=== PATIENT | female | born 1950 | race Caucasian/White ===

== ENCOUNTER 2020-11-03 09:34 | Day surgery (SDC) | payer MEDICARE ==
[2020-11-03] MEDS ORDERED: LACTATED RINGERS 1,000 ML IV ONE ×2 (10:19→13:19)
[2020-11-03] MEDS ORDERED: fentaNYL 250 MCG/5 ML VIAL ONE (12:41)
[2020-11-03] MEDS ORDERED: MIDAZOLAM 2 MG/2 ML VIAL ONE (12:41)
[2020-11-03 13:52] VITALS: BP 125/68
== END 2020-11-03 09:35 | disposition home or self-care (01) ==
LOC: SDS 09:34
PROVIDERS: ATTEND Surgery
DX: Z12.11 Encounter for screening for malignant neoplasm of colon (principal); K64.8 Other hemorrhoids; K64.4 Residual hemorrhoidal skin tags; K57.30 Diverticulosis of large intestine without perforation or abscess without bleeding
CPT/HCPCS: G0121; J3010; J7120

== ENCOUNTER 2022-09-28 08:29 | Outpatient (CLI) | payer MEDICARE ==
--- NOTE | 2022-09-28 10:20 | XRAY Report ---
PROCEDURE: Shoulder 3 View RT INDICATIONS: SHOULDER PX TECHNIQUE: 3 views of the shoulder were acquired. COMPARISON: None. FINDINGS: Bones: No fractures or dislocations. No suspicious bony lesions. Visualized ribs appear intact. Mi ld glenohumeral joint degenerative change. AC joint hypertrophy with mild downward component. Soft tissues: No suspicious soft tissue calcifications. IMPRESSION: Degenerative change. No evidence acute bony abnormality of the right shoulder. If clinical suspicion and/or symptoms persist, further assessment with repeat plain films or advanced imaging (e.g., CT, MRI, or bone scan) may be helpful for further assessment. Reviewed by: Anurag Harper MD on 09/28/2022 10:18 AM [facility] Approved by: Anurag Harper MD on 09/28/2022 10:18 AM [facility] Station ID: [id number]
== END 2022-09-28 08:30 | disposition home or self-care (01) ==
LOC: DI 08:29
PROVIDERS: ATTEND Physician Assistant
DX: M19.011 Primary osteoarthritis, right shoulder (principal)

== ENCOUNTER 2024-02-08 12:00 | Outpatient (CLI) | payer MEDICARE ==
--- NOTE | 2024-02-08 14:06 | XRAY Report ---
PROCEDURE: Lumbar Spine w/Flex/Ext 6+V INDICATIONS: RIGHT LUMBAR RADICULOPTHY TECHNIQUE: 6 views of the lumbar spine were acquired. COMPARISON: None. FINDINGS: Surgical change: None. Bones: 5 vwg-ehn-[id number] vertebrae are present. Mild levoconvex curvature. 2 mm grade 1 retrolisthes is at L1-2. 2 3 mm retrolisthesis at L2-3 and L3-4 No vertebral body compression fractures. No suspi cious bony lesions. Multilevel disc space narrowing and degenerative endplate changes. Multilevel fac et hypertrophy. Bilateral total hip arthroplasties. Soft tissues: Overlying bowel gas pattern is normal. No suspicious soft tissue calcifications. Rig ht upper quadrant cholecystectomy clips. Flexion/extension: Moderate range of motion, without change in alignment. Obliques: No pars defects. IMPRESSION: 1.Moderate multilevel spondylosis spondylosis and degenerative spondylolisthesis. 2.Mildly reduced lumbar range of motion without abnormal subluxation Reviewed by: Renard Zuñiga MD on 02/08/2024 2:05 PM PDT Approved by: Renard Zuñiga MD on 02/08/2024 2:05 PM PDT Station ID: [id number]
== END 2024-02-08 12:01 | disposition home or self-care (01) ==
LOC: DI 12:00
PROVIDERS: ATTEND Family Medicine
DX: M47.26 Other spondylosis with radiculopathy, lumbar region (principal); M43.16 Spondylolisthesis, lumbar region

== ENCOUNTER 2024-03-30 14:58 | Emergency (ER) | payer MEDICARE ==
--- NOTE | 2024-03-30 15:18 | ED Physician Documentation ---
PD HPI LOWER EXT INJURY - Stated complaint Stated Complaint: LT HIP PX - Chief complaint Chief Complaint: Ext Problem - History obtained from History obtained from: Patient - History of Present Illness PD HPI LOW EXT INJURY LOCATION: Left, Hip Type of injury: No: Fall, Twist Timing - onset: How many days ago (several) Timing - duration: Days Timing - details: Gradual onset, Still present, Waxing and waning Worsened by: Moving Associated symptoms: No: Weakness, Numbness Contributing factors: Prosthetic joint Similar symptoms before: Has not had sx before PD PAST MEDICAL HISTORY - Past Medical History Past Medical History: Yes Cardiovascular: Hypertension, Atrial fibrillation Respiratory: None Endocrine/Autoimmune: HyPOthyroidism GI: GERD : None HEENT: None Psych: None Musculoskeletal: Osteoarthritis Derm: None - Past Surgical History Past Surgical History: Yes General: Cholecystectomy Ortho: Hip replacement HEENT: Cataracts - Present Medications Home Medications: Ambulatory Orders Medication Instructions Recorded Confirmed Apixaban [Eliquis] 5 mg PO DAILY 11/02/20 03/30/24 Gabapentin [Neurontin] 600 mg PO DAILY 11/02/20 03/30/24 Irbesartan [Avapro] 150 mg PO DAILY 11/02/20 03/30/24 Levothyroxine Sodium 200 mcg PO DAILY 11/02/20 03/30/24 [Levothyroxine] Omeprazole 20 mg PO DAILY 11/02/20 03/30/24 Sotalol [Betapace] 40 mg PO BID 11/02/20 03/30/24 Ferrous Bis-Glycinate Chelate 1 cap PO DAILY 03/30/24 03/30/24 [Iron Bisglycinate] Oxycodone HCl/Acetaminophen 1 each PO Q8H PRN #15 tablet 03/30/24 [Percocet 5-325 mg Tablet] dexAMETHasone [Decadron] 4 mg PO DAILY #5 tablet 03/30/24 hydroCHLOROthiazide 1 tab PO PRN PRN 03/30/24 03/30/24 [Hydrochlorothiazide] - Allergies Allergies/Adverse Reactions: Allergies Allergy/AdvReac Type Severity Reaction Status Date / Time No Known Drug Allergies Allergy Verified 03/30/24 15:10 - Social History Does the pt smoke?: No Smoking Status: Never smoker Does the pt drink ETOH?: No Does the pt have substance abuse?: No - Immunizations Immunizations are current?: Yes - POLST Patient has POLST: No PD ED PE NORMAL - Vitals Vital signs reviewed: Yes - General General: Alert and oriented X 3, No acute distress, Well developed/nourished - Derm Derm: Normal color, Warm and dry, No rash - Extremities Extremities: No edema, No calf tenderness / cord, Other (some tenderness lateral hip at trochanter area. No reedness nor swelling. Not tender medially and no pain with impaction. SOme with rotation.) - Neuro Neuro: Alert and oriented X 3, No motor deficit, No sensory deficit Results - Vitals Vitals: Oxygen O2 Source Room air PD Medical Decision Making - ED course Complexity details: reviewed results (prostehsis appears normal without fractures nor signs of looseness of the parts. ), considered differential (several days increased hip pain without injury, fall, etc. Has had pains lateral at times for weeks or more. Pain lateral mainly. No clik=ck nor ppops. Prior hip replacement about 10 years ago. ), d/w patient ED course: her pain is more lateral and seems perhaps iT band or th=rochanteric. Xray is okay and i feel that is sufficient imaging. Departure - Departure Disposition: Home, Self Care Clinical Impression: Hip pain, acute Qualifiers: Laterality: left Qualified Code(s): M25.552 - Pain in left hip Condition: Stable Record reviewed to determine appropriate education?: Yes Follow-Up: Josh Hayward DO [Primary Care Provider] - [facility] [Provider Group] Prescriptions: dexAMETHasone [Decadron] 4 mg PO DAILY #5 tablet Oxycodone HCl/Acetaminophen [Percocet 5-325 mg Tablet] 1 each PO Q8H PRN #15 tablet PRN Reason: pain Comments: Continue with your usual medications. Add dexamethasone steroid anti- inflammatory daily for the next 5 days. Hopefully this will help any inflammation through the hip and pelvis. We do not want to give any NSAIDs in lieu of your being on the anticoagulant. In addition use acetaminophen/Tylenol 500 to 650 mg 4 times daily. Add oxycodone/acetaminophen if needed for worse pains, particularly at night or sleep etc. Activity as tolerated. Follow-up with orthopedics or your primary care this coming as planned with regard to any further evaluation if the hip is not improved by that point. I had considered a CT scan of the pelvis to look for other hidden abnormalities such as stress fractures or hematoma. At this point these would be treated similarly with the anti-inflammatory and pain medicine combination so it is reasonable to defer at this time. I sent your prescriptions to [facility] pharmacy. I am prescribing a short course of narcotic pain medication for you. These are potentially dangerous and addictive medications that should be used carefully. These medications may constipate you. Take an hudq-snj-ynbjegf stool softener such as docusate twice daily with plenty of water while taking these medications. If you go 24 hours without a bowel movement, take eonb-nzy-qqgkshu MiraLAX, per package instructions. Do not drink or drive while taking these medications. If you received narcotic or sedating medications while in the emergency department do not drive for 24 hours. Store this medication in a safe, secure place and out of reach of children. It is a violation of federal law to give or sell this medication to another person or to use in a manner other than prescribed. The ED will not refill narcotic prescriptions, including prescriptions lost or stolen. You can dispose of unwanted medications at the [facility]'s office or at several pharmacies such as [facility]. Forms: PCP List Discharge Date/Time: 03/30/24 18:33
--- NOTE | 2024-03-30 18:00 | XRAY Report ---
PROCEDURE: Hip w/Pelvis 2-3V LT INDICATIONS: pain after twisting TECHNIQUE: 2 views of the hip were acquired. COMPARISON: None. FINDINGS: Bones: Postsurgical changes of bilateral TRE show intact hardware without surrounding lucency, in an atomic alignment. The femoral head component is symmetrically well seated within the acetabular compo nent bilaterally. There is no periprosthetic fracture. Soft tissues: No suspicious soft tissue calcifications or masses. IMPRESSION: Postsurgical changes of bilateral TRE without evidence of postsurgical complication or acute abnormal ity. Reviewed by: Shanthi Trevizo MD on 03/30/2024 4:58 PM [facility] Approved by: Shanthi Trevizo MD on 03/30/2024 4:58 PM [facility] Station ID: [id number]
[2024-03-30] MEDS: oxyCODONE/ACET 5/325 Prepack 4 PO STA (18:26)
[2024-03-30] MEDS: dexAMETHasone 4 MG TABLET PO STA (18:26)
[2024-03-30 18:54] VITALS: BP 126/82; O2SAT 100
== END 2024-03-30 18:33 | disposition home or self-care (01) ==
LOC: ED 14:58
DX: M25.552 Pain in left hip (principal); W19.XXXA Unspecified fall, initial encounter; Z96.642 Presence of left artificial hip joint
CPT/HCPCS: 73502; 99283; J8540